=== PATIENT | female | born 1975 ===

== ENCOUNTER 2020-01-26 21:21 | Observation (INO) | payer MEDICAID, OTHER ==
[~2020-01-26] VITALS: Ht 167.6 cm; Wt 99.6 kg
[2020-01-26 22:00] LABS: BASOPHILS # (AUTO) 0.05 x10^3/uL (0-0.1); BASOPHILS % (AUTO) 0 % (0-1); EOSINOPHILS # (AUTO) 0.11 x10^3/uL (0-0.4); EOSINOPHILS % (AUTO) 1 % (1-7); LYMPHOCYTES # (AUTO) 2.59 x10^3/uL (1-3.4); LYMPHOCYTES % (AUTO) 18 % (22-44); MD NO; MEAN CORPUSCULAR HEMOGLOBIN 28.1 pg (27.0-34.8); MEAN CORPUSCULAR HGB CONC 32.7 g/dL (32.4-35.8); MEAN PLATELET VOLUME 7.7 fL (7.4-10.4); MONOCYTES # (AUTO) 0.92 x10^3/uL (0.2-0.8); MONOCYTES % (AUTO) 6 % (2-9); NEUTROPHILS # (AUTO) 10.84 x10^3/uL (1.8-6.8); NEUTROPHILS % (AUTO) 75 % (42-75); PLATELET COUNT 381 x10^3/uL (130-400); RED CELL DISTRIBUTION WIDTH 14.4 % (9.6-15.2)
--- NOTE | 2020-01-26 22:00 | NUR ---
Report received and care assumed. Mini cath completed for UA sample and sent. Pt sinus tach on monitor. VSS. Pt not responding to questions. Pt does open eyes and grab at staff during mini cath. Pt moving all extremities well. Pupils [place] @3. 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 Pt did receive Narcan INFORMATION TECHNOLOGY ADVISOR and upon arrival in ER with little improvement. Pt is holding airway on her own. Resp status stable at this time. Pt to go to CT.
[2020-01-26 22:06] LABS: ALANINE AMINOTRANSFERASE 45 U/L (12-78); ALBUMIN 3.6 g/dL (3.4-5.0); ANION GAP 5 mmol/L (5-15); CHLORIDE 111 mmol/L (98-107); CREATININE 0.74 mg/dL (0.55-1.02); SALICYLATE LEVEL 2.3 mg/dL (2.8-20.0)
[2020-01-26 22:08] LABS: ALKALINE PHOSPHATASE 102 U/L (45-117); BILIRUBIN,TOTAL 0.3 mg/dL (0.2-1.0); TOTAL PROTEIN 7.2 g/dL (6.4-8.2)
[2020-01-26 22:11] LABS: HCG UR SG 1.039 (1.003-1.030)
--- NOTE | 2020-01-26 22:19 | NUR ---
Returned from CT. Pt tolerated well. Pt intermittently waking up and pulling at things. Does not answer questions or follow commands at this time. VSS. Pt on monitoring equipment. door technician aware of need of sitter s/t pt confusion.
--- NOTE | 2020-01-26 22:37 | NUR ---
Seizure pads in place.
--- NOTE | 2020-01-26 22:45 | NUR ---
Pt's father, Nik Lofton, at bedside. Updated to POC. Father can be reached at [phone]. Per father, he is taking pt's wedding ring and a ring her mother gave her for safe keeping. Pt's clothing, earrings, a necklace, and another ring are left with pt. Father states he did not bring pt's wallet or any other belongings.
--- NOTE | 2020-01-26 22:55 | NUR ---
Tech at bedside for repeat EKG. VSS. Pt maintaining airway. Pt continues to move self in bed. Does not respond to any questions or follow commands. Awaiting sitter. Seizure precautions in place.
[2020-01-26 22:58] LABS: AMPHETAMINE SCREEN, URINE Positive (Negative); BARBITURATE SCREEN, URINE Negative (Negative); BENZODIAZEPINE SCREEN, URINE Negative (Negative); CANNABINOID SCREEN, URINE Negative (Negative); COCAINE SCREEN, URINE Negative (Negative); METHADONE SCREEN, URINE Negative (Negative); OPIATE SCREEN, URINE Negative (Negative)
[2020-01-26 23:13] LABS: MICROSCOPIC INDICATED
[2020-01-26] MEDS ORDERED: SODIUM CHLORIDE 0.9% 1,000 ML IV SCH (23:59)
[2020-01-27] MEDS ORDERED: ONDANSETRON 2MG/ML, 2ML IVPush PRN
[2020-01-27] MEDS ORDERED: hydrALAzine 20 MG/ML, 1ML IVPush PRN
[2020-01-27] MEDS ORDERED: BISACODYL 10 MG SUPP PR PRN
[2020-01-27] MEDS ORDERED: POLYETHYLENE GLYCOL 17 GM PACKET PO PRN
[2020-01-27] MEDS ORDERED: ACETAMINOPHEN 325 MG TABLET PO PRN
--- NOTE | 2020-01-27 00:38 | NUR ---
PT RESTING IN BED, SITTER AT BEDSIDE, VSS, NO COMPLAINTS AT THIS TIME
--- NOTE | 2020-01-27 01:45 | NUR ---
PT SLEEPING IN BED WITH NO COMPLAINTS, SITTER AT BEDSIDE, VSS
--- NOTE | 2020-01-27 03:00 | NUR ---
Reassumed care of pt. Pt sleeping with resp even and unlabored. VSS. Seizure precautions in place. Sitter in place for obs. Admit orders reviewed.
--- NOTE | 2020-01-27 03:10 | NUR ---
Discussed pt xray and wbc count with erp, no antibiotics to be given at this time.
--- NOTE | 2020-01-27 03:49 | NUR ---
PT moved to rm 1. Report to Lena VÁSQUEZ.
--- NOTE | 2020-01-27 03:49 | NUR ---
REPORT FROM PREVIOUS RN. VITAL SIGNS STABLE. NO NOTED ACUTE DISTRESS. SITTER IN VIEW OF PATIENT. TOLERATED MOVE WELL. BED IN LOWEST LOCKED POSITION. TOLERATING INTERVENTIONS WELL. WILL CONTINUE TO MONITOR.
--- NOTE | 2020-01-27 04:30 | NUR ---
RN AT BEDSIDE ONE-ON-ONE OBSERVATION. PATIENT'S VITAL SIGNS STABLE, RESTING IN BED/EVEN UNLABORED RESPIRATIONS NOTED. WILL CONTINUE TO MONITOR.
[2020-01-27 04:39] LABS: BASOPHILS # (AUTO) 0.04 x10^3/uL (0-0.1); BASOPHILS % (AUTO) 0 % (0-1); EOSINOPHILS # (AUTO) 0.16 x10^3/uL (0-0.4); EOSINOPHILS % (AUTO) 1 % (1-7); LYMPHOCYTES # (AUTO) 3.21 x10^3/uL (1-3.4); LYMPHOCYTES % (AUTO) 20 % (22-44); MD NO; MEAN CORPUSCULAR HEMOGLOBIN 28.2 pg (27.0-34.8); MEAN CORPUSCULAR HGB CONC 32.7 g/dL (32.4-35.8); MEAN PLATELET VOLUME 7.7 fL (7.4-10.4); MONOCYTES # (AUTO) 0.82 x10^3/uL (0.2-0.8); MONOCYTES % (AUTO) 5 % (2-9); NEUTROPHILS % (AUTO) 73 % (42-75); PLATELET COUNT 364 x10^3/uL (130-400); RED BLOOD COUNT 4.68 x10^6/uL (3.82-5.3); RED CELL DISTRIBUTION WIDTH 14.2 % (9.6-15.2)
[2020-01-27 04:50] LABS: ANION GAP 3 mmol/L (5-15); CALCIUM 8.4 mg/dL (8.5-10.1); CHLORIDE 110 mmol/L (98-107); CREATININE 0.78 mg/dL (0.55-1.02)
--- NOTE | 2020-01-27 05:12 | NUR ---
AIDED LAB WITH DRAW FOR AM LABS. PATIENT TOLERATED POORLY.
--- NOTE | 2020-01-27 05:30 | NUR ---
PATIENT MOVING IN BED/REPOSITIONING. TOLERATING WELL. MOVING ALL ETREMITIES WELL. PATIENT ABLE TO FOLLOW SIMPLE ONE STEP COMMANDS. ONE-ON-ONE OBSERVATION/SITTER. WILL CONTINUE TO MONITOR.
--- NOTE | 2020-01-27 05:49 | NUR ---
PATIENT'S FAMILY/ CAL[facility] ; CALL IN CASE OF EMERGENCY
[2020-01-27 07:35] VITALS: BP 133/86
[2020-01-27] MEDS: SENNA/DOCUSATE TABLET PO SCH (09:00)
[2020-01-27 09:46] VITALS: BP 130/82
[2020-01-27 13:59] VITALS: BP 145/87
[2020-01-27 20:03] VITALS: BP 113/71
[2020-01-27] MEDS ORDERED: SODIUM CHLORIDE 0.9% 1,000 ML IV SCH (23:59)
[2020-01-28 00:53] VITALS: BP 121/82
[2020-01-28 07:37] VITALS: BP 109/75
[2020-01-28] MEDS: SENNA/DOCUSATE TABLET PO SCH (08:23)
[2020-01-28 12:04] VITALS: BP 92/59
[2020-01-28 20:01] VITALS: BP 108/71
[2020-01-28] MEDS ORDERED: ACETAMINOPHEN 325 MG TABLET PO PRN (21:00)
[2020-01-28] MEDS ORDERED: hydrALAzine 20 MG/ML, 1ML IVPush PRN (21:00)
[2020-01-28] MEDS ORDERED: POLYETHYLENE GLYCOL 17 GM PACKET PO PRN (21:00)
[2020-01-28] MEDS ORDERED: ONDANSETRON 2MG/ML, 2ML IVPush PRN (21:00)
[2020-01-28] MEDS ORDERED: BISACODYL 10 MG SUPP PR PRN (21:00)
[2020-01-29 02:04] VITALS: BP 118/74
[2020-01-29 05:17] LABS: BASOPHILS # (AUTO) 0.07 x10^3/uL (0-0.1); BASOPHILS % (AUTO) 1 % (0-1); EOSINOPHILS # (AUTO) 0.47 x10^3/uL (0-0.4); EOSINOPHILS % (AUTO) 3 % (1-7); LYMPHOCYTES # (AUTO) 3.55 x10^3/uL (1-3.4); LYMPHOCYTES % (AUTO) 26 % (22-44); MD NO; MEAN CORPUSCULAR HEMOGLOBIN 28.3 pg (27.0-34.8); MEAN PLATELET VOLUME 7.9 fL (7.4-10.4); MONOCYTES % (AUTO) 7 % (2-9); NEUTROPHILS % (AUTO) 64 % (42-75); PLATELET COUNT 364 x10^3/uL (130-400); RED BLOOD COUNT 4.91 x10^6/uL (3.82-5.3); RED CELL DISTRIBUTION WIDTH 14.3 % (9.6-15.2)
[2020-01-29 07:45] VITALS: BP 112/75
[2020-01-29] MEDS: SENNA/DOCUSATE TABLET PO SCH (09:00)
[2020-01-29 15:24] VITALS: BP 118/77
[2020-01-29] MEDS ORDERED: LURA60TA PO (17:20)
[2020-01-29] MEDS ORDERED: TOPI100T39 PO (17:20)
[2020-01-29] MEDS ORDERED: GABA-826 PO (17:20)
[2020-01-29 21:26] VITALS: BP 106/69
[2020-01-30 01:34] VITALS: BP 101/62
[2020-01-30 07:46] VITALS: BP 96/62
[2020-01-30] MEDS: SENNA/DOCUSATE TABLET PO SCH (09:00)
[2020-01-30 13:33] VITALS: BP 97/65
[2020-01-30 19:26] VITALS: BP 116/74
[2020-01-30 21:35] VITALS: BP 116/82
[2020-01-31 01:37] VITALS: BP 111/73
[2020-01-31 07:56] VITALS: BP 118/81
[2020-01-31] MEDS: SENNA/DOCUSATE TABLET PO SCH (08:25)
[2020-01-31 13:13] VITALS: BP 120/81
[2020-01-31 20:26] VITALS: BP 117/70
[2020-02-01 01:27] VITALS: BP 111/69
[2020-02-01 07:03] VITALS: BP 103/70
[2020-02-01] MEDS: SENNA/DOCUSATE TABLET PO SCH (09:00)
[2020-02-01 14:08] VITALS: BP 131/85
== END 2020-02-01 15:13 | disposition home or self-care (01) ==
LOC: ED 23:50 → INTOOBSV 23:59 → EDBD 23:59 → EDIP 23:59 → 4WST 01-27 06:14 → UNDODISIN 01-27 15:33 → DCLOUNGE 02-01 15:13
PROVIDERS: ADMIT Internal Medicine; ATTEND Internal Medicine
DX: G92 Toxic encephalopathy (principal); T45.0X2A Poisoning by antiallergic and antiemetic drugs, intentional self-harm, initial encounter; T42.6X2A Poisoning by other antiepileptic and sedative-hypnotic drugs, intentional self-harm, initial encounter; T39.1X2A Poisoning by 4-Aminophenol derivatives, intentional self-harm, initial encounter; T42.8X2A Poisoning by antiparkinsonism drugs and other central muscle-tone depressants, intentional self-harm, initial encounter; R41.82 Altered mental status, unspecified; D72.829 Elevated white blood cell count, unspecified; F15.10 Other stimulant abuse, uncomplicated; E66.9 Obesity, unspecified; F32.9 Major depressive disorder, single episode, unspecified; F43.0 Acute stress reaction; R09.02 Hypoxemia; Z68.37 Body mass index [BMI] 37.0-37.9, adult; Z79.899 Other long term (current) drug therapy
CPT/HCPCS: 36415; 70450; 71045; 80048; 80053; 80307; 81001; 81025; 82140; 82962; 83605; 85025; 93005; 99291; G0378